=== PATIENT | male | born 1940 | race African-American/Black ===

== ENCOUNTER 2018-06-10 23:00 | Inpatient (IN) | payer MEDICARE, MEDICAID ==
[~2018-06-10] VITALS: Ht 175.3 cm; Wt 95.5 kg
[~2018-06-10 23:00] MED LIST: AMLO5TAB88 PO; ATOR40TA70 PO; BACL-141 PO; BRIM15DR8 EACHEYE; CLON0.2T PO; CLOP75TA33 PO; DICL2.5D8 EACHEYE; DORZ10DR8 EACHEYE; FERR-63 PO; FURO40TA5 PO; HYDR-4135 PO; INSNOV SUBCUT; INSU3INS6 SQ; LINA145C PO; LOSA100T14 PO; METO-539 PO; MINO10TA PO; OMEP20CA10 PO; POTA-79 PO; TAMS0.4C31 PO; TIOT18CA3 IH; [UNRECOGNIZED DRUG - OTHER]
[2018-06-11] MEDS ORDERED: ACETAMINOPHEN 325MG TABLET PO PRN (00:45)
[2018-06-11] MEDS ORDERED: ACETAMINOPHEN 650MG SUPP PR PRN (00:45)
[2018-06-11] MEDS ORDERED: ONDANSETRON HCL 4MG/2ML VIAL IV PRN (00:45)
[2018-06-11] MEDS ORDERED: IPRATROPIUM/ALBUTEROL 0.5-3(2.5)MG/3ML NEB HHN PRN (00:45)
[2018-06-11] MEDS ORDERED: DEXTROSE 50% WATER 50ML SYRINGE IV PRN (00:45)
[2018-06-11] MEDS ORDERED: DIPHENHYDRAMINE 50MG/ML VIAL IV PRN (00:45)
[2018-06-11 01:30] VITALS: BP 148/69
[2018-06-11] MEDS: CLONIDINE 0.1MG TABLET PO SCH ×3 (06:29→22:34)
[2018-06-11] MEDS: DILTIAZEM HCL 90MG TABLET PO SCH ×3 (06:29→22:28)
[2018-06-11] MEDS: INSULIN LISPRO 100 UNITS/ML SUBCUT SCH ×5 (06:30→17:00)
[2018-06-11] MEDS: BLOOD SUGAR DIAGNOSTIC STRIP TEST SCH ×4 (06:30→21:00)
[2018-06-11 07:12] LABS: HEMATOCRIT. 29.3 % (42.0-52.0); HEMOGLOBIN. 9.8 g/dL (14.0-18.0); MEAN CORPUSCULAR HEMOGLOBIN 28.3 pg (28.0-32.0); MEAN CORPUSCULAR VOLUME 85.1 fL (80.0-94.0); PLATELET 313 x1000/uL (130-400); RED BLOOD CELL COUNT 3.45 mill/uL (4.7-6.1); RED CELL DISTRIBUTION WIDTH 15.4 % (11.6-14.6)
[2018-06-11] MEDS: IPRATROPIUM/ALBUTEROL 0.5-3(2.5)MG/3ML NEB HHN SCH ×3 (07:12→19:40)
[2018-06-11 08:00] VITALS: BP 151/82
[2018-06-11 08:02] LABS: CHLORIDE 101 mEq/L (98-107)
[2018-06-11] MEDS: CLOTRIMAZOLE 10MG TROCHE MM SCH ×5 (09:00→22:36)
[2018-06-11] MEDS: DOCUSATE SODIUM 250MG CAPSULE PO SCH (09:15)
[2018-06-11] MEDS: CALCIUM ACETATE 667MG CAPSULE PO SCH ×3 (09:15→18:59)
[2018-06-11] MEDS: OMEPRAZOLE 20MG CAPSULE EXTENDED RELEASE PO SCH ×2 (09:16→21:00)
[2018-06-11] MEDS: BRIMONIDINE 0.2% OPHTH DROPS 5ML BOTHEYE SCH ×2 (09:16→18:59)
[2018-06-11] MEDS: DICLOFENAC SODIUM 0.1% OPHTH 2.5 ML BOTTLE BOTHEYE SCH ×2 (09:16→18:59)
[2018-06-11] MEDS: DORZOLAMIDE 2% OPHTH 10 ML BOTTLE BOTHEYE SCH ×2 (09:16→18:59)
[2018-06-11 10:31] LABS: PLATELET ESTIMATE NORMAL
[2018-06-11 20:00] VITALS: BP 155/78
[2018-06-11] MEDS: GUAIFENESIN 600MG ER TABLET PO SCH ×2 (21:00→22:43)
[2018-06-11] MEDS: ATORVASTATIN CALCIUM 40MG TABLET PO SCH (22:26)
[2018-06-12] MEDS: INSULIN LISPRO 100 UNITS/ML SUBCUT SCH ×5 (00:42→22:29)
[2018-06-12] MEDS: IPRATROPIUM/ALBUTEROL 0.5-3(2.5)MG/3ML NEB HHN SCH ×3 (01:30→21:31)
[2018-06-12 06:47] LABS: HEMATOCRIT. 26.5 % (42.0-52.0); MEAN CORPUSCULAR HEMOGLOBIN 28.6 pg (28.0-32.0); MEAN CORPUSCULAR VOLUME 84.3 fL (80.0-94.0); MEAN PLATELET VOLUME 8.1 fl (7.4-10.4); PLATELET 281 x1000/uL (130-400); RED BLOOD CELL COUNT 3.15 mill/uL (4.7-6.1); RED CELL DISTRIBUTION WIDTH 15.7 % (11.6-14.6)
[2018-06-12] MEDS: BLOOD SUGAR DIAGNOSTIC STRIP TEST SCH ×4 (06:49→21:00)
[2018-06-12] MEDS: DILTIAZEM HCL 90MG TABLET PO SCH ×3 (06:55→22:20)
[2018-06-12] MEDS: CLONIDINE 0.1MG TABLET PO SCH ×3 (06:56→22:20)
[2018-06-12 08:00] VITALS: BP 148/73
[2018-06-12] MEDS: CALCIUM ACETATE 667MG CAPSULE PO SCH ×3 (08:56→17:18)
[2018-06-12] MEDS: DOCUSATE SODIUM 250MG CAPSULE PO SCH (08:56)
[2018-06-12] MEDS: OMEPRAZOLE 20MG CAPSULE EXTENDED RELEASE PO SCH ×2 (08:56→22:20)
[2018-06-12] MEDS: DICLOFENAC SODIUM 0.1% OPHTH 2.5 ML BOTTLE BOTHEYE SCH ×2 (09:00→17:20)
[2018-06-12] MEDS: DORZOLAMIDE 2% OPHTH 10 ML BOTTLE BOTHEYE SCH ×2 (09:01→17:20)
[2018-06-12] MEDS: BRIMONIDINE 0.2% OPHTH DROPS 5ML BOTHEYE SCH ×2 (09:02→17:19)
[2018-06-12 11:52] LABS: NUCLEATED RED BLOOD CELLS 1 /100 WBC
[2018-06-12 11:53] LABS: PLATELET ESTIMATE NORMAL
[2018-06-12] MEDS: CLOTRIMAZOLE 10MG TROCHE MM SCH ×3 (12:17→22:19)
[2018-06-12 20:00] VITALS: BP 142/65
[2018-06-12] MEDS ORDERED: ENOXAPARIN 40MG/0.4ML SYR SUBCUT SCH (20:00)
[2018-06-12] MEDS: GUAIFENESIN 600MG ER TABLET PO SCH (22:20)
[2018-06-12] MEDS: ATORVASTATIN CALCIUM 40MG TABLET PO SCH (22:20)
[2018-06-12] MEDS: ENOXAPARIN 100MG/ML SYR SUBCUT SCH (22:21)
[2018-06-13] MEDS: IPRATROPIUM/ALBUTEROL 0.5-3(2.5)MG/3ML NEB HHN SCH ×4 (01:58→19:52)
[2018-06-13] MEDS: DILTIAZEM HCL 90MG TABLET PO SCH ×3 (05:27→21:02)
[2018-06-13] MEDS: CLONIDINE 0.1MG TABLET PO SCH ×3 (05:27→21:02)
[2018-06-13] MEDS: BLOOD SUGAR DIAGNOSTIC STRIP TEST SCH ×4 (06:30→21:10)
[2018-06-13 07:54] LABS: HEMATOCRIT. 23.6 % (42.0-52.0); HEMOGLOBIN. 7.9 g/dL (14.0-18.0); MEAN CORPUSCULAR HEMOGLOBIN 28.5 pg (28.0-32.0); MEAN CORPUSCULAR VOLUME 84.5 fL (80.0-94.0); MEAN PLATELET VOLUME 8.2 fl (7.4-10.4); PLATELET 266 x1000/uL (130-400); RED BLOOD CELL COUNT 2.79 mill/uL (4.7-6.1)
[2018-06-13 08:00] VITALS: BP 166/76
[2018-06-13 08:21] LABS: CHLORIDE 101 mEq/L (98-107)
[2018-06-13 08:33] LABS: PHOSPHORUS 5.7 mg/dL (2.5-4.9)
[2018-06-13 08:36] LABS: TOTAL IRON BINDING CAPACITY 236 ug/dL (250-450)
[2018-06-13] MEDS: INSULIN LISPRO 100 UNITS/ML SUBCUT SCH ×4 (09:00→21:09)
[2018-06-13] MEDS: OMEPRAZOLE 20MG CAPSULE EXTENDED RELEASE PO SCH (09:16)
[2018-06-13] MEDS: DOCUSATE SODIUM 250MG CAPSULE PO SCH ×2 (09:16→19:09)
[2018-06-13] MEDS: GUAIFENESIN 600MG ER TABLET PO SCH ×2 (09:16→21:02)
[2018-06-13] MEDS: CALCIUM ACETATE 667MG CAPSULE PO SCH ×3 (09:16→19:09)
[2018-06-13] MEDS: DORZOLAMIDE 2% OPHTH 10 ML BOTTLE BOTHEYE SCH ×2 (09:17→19:10)
[2018-06-13] MEDS: DICLOFENAC SODIUM 0.1% OPHTH 2.5 ML BOTTLE BOTHEYE SCH ×2 (09:17→19:11)
[2018-06-13] MEDS: BRIMONIDINE 0.2% OPHTH DROPS 5ML BOTHEYE SCH ×2 (09:17→19:11)
[2018-06-13 09:40] LABS: FOLIC ACID (FOLATE) SERUM 8.3 ng/mL (>5.38)
[2018-06-13] MEDS: CLOTRIMAZOLE 10MG TROCHE MM SCH ×4 (10:48→21:01)
[2018-06-13 12:48] LABS: PLATELET ESTIMATE NORMAL
[2018-06-13] MEDS ORDERED: HEPARIN SODIUM 1,000 UNIT/1ML VIAL IV NR (15:15)
[2018-06-13 15:16] LABS: HEMATOCRIT 24.2 % (42.0-52.0); HEMOGLOBIN 8.1 g/dL (14.0-18.0); MEAN CORPUSCULAR HEMOGLOBIN 28.4 pg (28.0-32.0); MEAN CORPUSCULAR VOLUME 84.7 fL (80.0-94.0); PLATELET 281 x1000/uL (130-400); RED BLOOD CELL COUNT 2.85 mill/uL (4.7-6.1); RED CELL DISTRIBUTION WIDTH 15.6 % (11.6-14.6)
[2018-06-13 20:00] VITALS: BP 148/68
[2018-06-13] MEDS: ATORVASTATIN CALCIUM 40MG TABLET PO SCH (21:02)
[2018-06-13] MEDS: ENOXAPARIN 100MG/ML SYR SUBCUT SCH (21:02)
[2018-06-13] MEDS ORDERED: IOHEXOL-350 100 ML BOTTLE ONE (22:40)
[2018-06-14] MEDS: IPRATROPIUM/ALBUTEROL 0.5-3(2.5)MG/3ML NEB HHN SCH ×4 (01:11→21:04)
[2018-06-14 04:55] VITALS: BP 163/76
[2018-06-14] MEDS: DILTIAZEM HCL 90MG TABLET PO SCH ×3 (05:26→21:11)
[2018-06-14] MEDS: LACTULOSE 20G/30ML UDC PO PRN ×2 (05:26→22:50)
[2018-06-14] MEDS: CLONIDINE 0.1MG TABLET PO SCH ×3 (05:27→21:11)
[2018-06-14] MEDS: BLOOD SUGAR DIAGNOSTIC STRIP TEST SCH ×4 (06:13→21:13)
[2018-06-14] MEDS: INSULIN LISPRO 100 UNITS/ML SUBCUT SCH ×4 (06:25→21:00)
[2018-06-14 08:00] VITALS: BP 145/64
[2018-06-14 09:29] LABS: HEMATOCRIT. 26.2 % (42.0-52.0); HEMOGLOBIN. 8.8 g/dL (14.0-18.0); MEAN CORPUSCULAR HEMOGLOBIN 28.3 pg (28.0-32.0); MEAN CORPUSCULAR VOLUME 84.3 fL (80.0-94.0); MEAN PLATELET VOLUME 8.4 fl (7.4-10.4); PLATELET 353 x1000/uL (130-400); RED CELL DISTRIBUTION WIDTH 15.4 % (11.6-14.6)
[2018-06-14] MEDS: CLOTRIMAZOLE 10MG TROCHE MM SCH ×4 (09:39→20:38)
[2018-06-14] MEDS: FAMOTIDINE 20MG TABLET PO SCH (09:39)
[2018-06-14] MEDS: CALCIUM ACETATE 667MG CAPSULE PO SCH ×3 (09:39→18:12)
[2018-06-14] MEDS: BRIMONIDINE 0.2% OPHTH DROPS 5ML BOTHEYE SCH ×2 (09:40→18:15)
[2018-06-14] MEDS: DORZOLAMIDE 2% OPHTH 10 ML BOTTLE BOTHEYE SCH ×2 (09:40→18:15)
[2018-06-14] MEDS: DICLOFENAC SODIUM 0.1% OPHTH 2.5 ML BOTTLE BOTHEYE SCH ×2 (09:40→18:15)
[2018-06-14 10:22] LABS: PHOSPHORUS 4.6 mg/dL (2.5-4.9)
[2018-06-14] MEDS: GUAIFENESIN 600MG ER TABLET PO SCH ×2 (10:30→20:38)
[2018-06-14 12:00] VITALS: BP 158/69
[2018-06-14 14:30] LABS: PLATELET ESTIMATE NORMAL
[2018-06-14 16:00] VITALS: BP 158/69
[2018-06-14 20:00] VITALS: BP 146/72
[2018-06-14] MEDS: ENOXAPARIN 100MG/ML SYR SUBCUT SCH (20:38)
[2018-06-14] MEDS: MIRTAZAPINE 30MG TABLET PO SCH (20:39)
[2018-06-14] MEDS: ATORVASTATIN CALCIUM 40MG TABLET PO SCH (20:39)
[2018-06-15] MEDS: IPRATROPIUM/ALBUTEROL 0.5-3(2.5)MG/3ML NEB HHN SCH ×3 (01:51→12:38)
[2018-06-15] MEDS: DILTIAZEM HCL 90MG TABLET PO SCH ×3 (05:43→21:16)
[2018-06-15] MEDS: CLONIDINE 0.1MG TABLET PO SCH ×3 (05:43→23:40)
[2018-06-15] MEDS: BLOOD SUGAR DIAGNOSTIC STRIP TEST SCH ×4 (06:31→20:45)
[2018-06-15] MEDS: INSULIN LISPRO 100 UNITS/ML SUBCUT SCH ×4 (06:43→21:09)
[2018-06-15 07:01] LABS: BASOPHILS % 1.3 % (0.0-2.0); EOSINOPHILS % 1.3 % (0.0-5.0); HEMOGLOBIN. 8.1 g/dL (14.0-18.0); LYMPHOCYTES % 8.5 % (20.0-50.0); MEAN CORPUSCULAR VOLUME 85.6 fL (80.0-94.0); MEAN PLATELET VOLUME 8.4 fl (7.4-10.4); MONOCYTES % 10.7 % (2.0-8.0); NEUTROPHILS % 78.2 % (40.0-76.0); PLATELET 315 x1000/uL (130-400); RED BLOOD CELL COUNT 2.81 mill/uL (4.7-6.1); RED CELL DISTRIBUTION WIDTH 15.2 % (11.6-14.6)
[2018-06-15 07:34] LABS: CHLORIDE 101 mEq/L (98-107)
[2018-06-15 07:44] LABS: PHOSPHORUS 4.8 mg/dL (2.5-4.9)
[2018-06-15 08:00] VITALS: BP 146/68
[2018-06-15] MEDS: BRIMONIDINE 0.2% OPHTH DROPS 5ML BOTHEYE SCH ×2 (09:00→17:00)
[2018-06-15] MEDS: DICLOFENAC SODIUM 0.1% OPHTH 2.5 ML BOTTLE BOTHEYE SCH ×2 (09:00→17:00)
[2018-06-15] MEDS: DORZOLAMIDE 2% OPHTH 10 ML BOTTLE BOTHEYE SCH ×2 (09:00→17:00)
[2018-06-15] MEDS: DOCUSATE SODIUM 250MG CAPSULE PO SCH (09:30)
[2018-06-15] MEDS: CALCIUM ACETATE 667MG CAPSULE PO SCH ×3 (09:30→20:20)
[2018-06-15] MEDS: FAMOTIDINE 20MG TABLET PO SCH (09:30)
[2018-06-15] MEDS: GUAIFENESIN 600MG ER TABLET PO SCH ×2 (10:34→20:44)
[2018-06-15 20:00] VITALS: BP 169/88
[2018-06-15] MEDS: ATORVASTATIN CALCIUM 40MG TABLET PO SCH (20:43)
[2018-06-15] MEDS: MIRTAZAPINE 30MG TABLET PO SCH (20:44)
[2018-06-15] MEDS: EPOETIN ALFA 10000UNITS/ML VIAL SUBCUT SCH (21:08)
[2018-06-15] MEDS: ENOXAPARIN 100MG/ML SYR SUBCUT SCH (21:08)
[2018-06-15] MEDS: LACTULOSE 20G/30ML UDC PO PRN (21:22)
[2018-06-16] MEDS: CLONIDINE 0.1MG TABLET PO SCH ×3 (06:00→22:00)
[2018-06-16] MEDS: BLOOD SUGAR DIAGNOSTIC STRIP TEST SCH ×4 (06:43→21:10)
[2018-06-16] MEDS: DILTIAZEM HCL 90MG TABLET PO SCH ×3 (06:56→21:10)
[2018-06-16] MEDS: INSULIN LISPRO 100 UNITS/ML SUBCUT SCH ×4 (06:57→21:38)
[2018-06-16 08:00] VITALS: BP 161/75
[2018-06-16] MEDS: IPRATROPIUM/ALBUTEROL 0.5-3(2.5)MG/3ML NEB HHN SCH ×3 (08:55→21:27)
[2018-06-16] MEDS: DICLOFENAC SODIUM 0.1% OPHTH 2.5 ML BOTTLE BOTHEYE SCH ×2 (09:00→17:00)
[2018-06-16] MEDS: DORZOLAMIDE 2% OPHTH 10 ML BOTTLE BOTHEYE SCH ×2 (09:00→17:00)
[2018-06-16] MEDS: BRIMONIDINE 0.2% OPHTH DROPS 5ML BOTHEYE SCH ×2 (09:00→17:00)
[2018-06-16] MEDS: GUAIFENESIN 600MG ER TABLET PO SCH ×2 (10:44→21:10)
[2018-06-16] MEDS: FAMOTIDINE 20MG TABLET PO SCH (10:45)
[2018-06-16] MEDS: DOCUSATE SODIUM 250MG CAPSULE PO SCH (10:45)
[2018-06-16] MEDS: CALCIUM ACETATE 667MG CAPSULE PO SCH ×3 (10:49→18:03)
[2018-06-16 13:12] LABS: HEMATOCRIT. 30.5 % (42.0-52.0); HEMOGLOBIN. 9.6 g/dL (14.0-18.0); MEAN CORPUSCULAR HEMOGLOBIN 28.5 pg (28.0-32.0); MEAN CORPUSCULAR VOLUME 90.5 fL (80.0-94.0); MEAN PLATELET VOLUME 7.9 fl (7.4-10.4); PLATELET 268 x1000/uL (130-400); RED BLOOD CELL COUNT 3.37 mill/uL (4.7-6.1); RED CELL DISTRIBUTION WIDTH 15.6 % (11.6-14.6)
[2018-06-16 13:42] LABS: CHLORIDE 101 mEq/L (98-107)
[2018-06-16 14:12] LABS: PLATELET ESTIMATE NORMAL
[2018-06-16 20:00] VITALS: BP 133/62
[2018-06-16] MEDS: ENOXAPARIN 100MG/ML SYR SUBCUT SCH (21:09)
[2018-06-16] MEDS: ATORVASTATIN CALCIUM 40MG TABLET PO SCH (21:10)
[2018-06-16] MEDS: MIRTAZAPINE 30MG TABLET PO SCH (21:10)
[2018-06-17] MEDS: IPRATROPIUM/ALBUTEROL 0.5-3(2.5)MG/3ML NEB HHN SCH ×4 (02:00→20:58)
[2018-06-17] MEDS: CLONIDINE 0.1MG TABLET PO SCH ×2 (06:14→06:16)
[2018-06-17] MEDS: BLOOD SUGAR DIAGNOSTIC STRIP TEST SCH ×5 (06:14→21:18)
[2018-06-17] MEDS: DILTIAZEM HCL 90MG TABLET PO SCH ×3 (06:14→21:43)
[2018-06-17] MEDS: INSULIN LISPRO 100 UNITS/ML SUBCUT SCH ×4 (06:14→21:59)
[2018-06-17 07:12] LABS: HEMATOCRIT. 25.2 % (42.0-52.0); HEMOGLOBIN. 8.5 g/dL (14.0-18.0); MEAN CORPUSCULAR HEMOGLOBIN 28.6 pg (28.0-32.0); MEAN CORPUSCULAR VOLUME 84.4 fL (80.0-94.0); MEAN PLATELET VOLUME 7.7 fl (7.4-10.4); PLATELET 367 x1000/uL (130-400); RED BLOOD CELL COUNT 2.98 mill/uL (4.7-6.1); RED CELL DISTRIBUTION WIDTH 15.4 % (11.6-14.6)
[2018-06-17 07:30] LABS: PHOSPHORUS 4.3 mg/dL (2.5-4.9)
[2018-06-17 08:00] VITALS: BP 178/88
[2018-06-17 08:30] VITALS: BP 156/70
[2018-06-17] MEDS: GUAIFENESIN 600MG ER TABLET PO SCH ×2 (08:58→21:43)
[2018-06-17] MEDS: DOCUSATE SODIUM 250MG CAPSULE PO SCH (08:59)
[2018-06-17] MEDS: CALCIUM ACETATE 667MG CAPSULE PO SCH ×3 (08:59→17:26)
[2018-06-17] MEDS: DORZOLAMIDE 2% OPHTH 10 ML BOTTLE BOTHEYE SCH ×2 (08:59→17:26)
[2018-06-17] MEDS: FAMOTIDINE 20MG TABLET PO SCH (08:59)
[2018-06-17] MEDS: DICLOFENAC SODIUM 0.1% OPHTH 2.5 ML BOTTLE BOTHEYE SCH ×2 (08:59→17:26)
[2018-06-17] MEDS: BRIMONIDINE 0.2% OPHTH DROPS 5ML BOTHEYE SCH ×2 (09:00→17:26)
[2018-06-17] MEDS: LINAGLIPTIN 5MG TABLET PO SCH (12:31)
[2018-06-17 14:00] LABS: PLATELET ESTIMATE NORMAL
[2018-06-17] MEDS: CLONIDINE 0.2MG TABLET PO SCH ×2 (14:23→21:43)
[2018-06-17 20:00] VITALS: BP 133/71
[2018-06-17] MEDS: ENOXAPARIN 100MG/ML SYR SUBCUT SCH (21:42)
[2018-06-17] MEDS: ATORVASTATIN CALCIUM 40MG TABLET PO SCH (21:43)
[2018-06-17] MEDS: MIRTAZAPINE 30MG TABLET PO SCH (21:43)
[2018-06-17] MEDS: EPOETIN ALFA 10000UNITS/ML VIAL SUBCUT SCH (21:44)
[2018-06-18] MEDS: IPRATROPIUM/ALBUTEROL 0.5-3(2.5)MG/3ML NEB HHN SCH ×4 (01:17→20:32)
[2018-06-18] MEDS: DILTIAZEM HCL 90MG TABLET PO SCH ×3 (06:03→21:19)
[2018-06-18] MEDS: CLONIDINE 0.2MG TABLET PO SCH ×3 (06:03→21:19)
[2018-06-18] MEDS: BLOOD SUGAR DIAGNOSTIC STRIP TEST SCH ×4 (06:05→21:19)
[2018-06-18] MEDS: INSULIN LISPRO 100 UNITS/ML SUBCUT SCH ×4 (06:36→22:24)
[2018-06-18 08:00] VITALS: BP 127/58
[2018-06-18] MEDS: DORZOLAMIDE 2% OPHTH 10 ML BOTTLE BOTHEYE SCH ×2 (09:37→17:59)
[2018-06-18] MEDS: CALCIUM ACETATE 667MG CAPSULE PO SCH ×3 (09:37→17:58)
[2018-06-18] MEDS: DOCUSATE SODIUM 250MG CAPSULE PO SCH (09:37)
[2018-06-18] MEDS: GUAIFENESIN 600MG ER TABLET PO SCH ×2 (09:37→21:19)
[2018-06-18] MEDS: FAMOTIDINE 20MG TABLET PO SCH (09:37)
[2018-06-18] MEDS: BRIMONIDINE 0.2% OPHTH DROPS 5ML BOTHEYE SCH ×2 (09:37→17:59)
[2018-06-18] MEDS: DICLOFENAC SODIUM 0.1% OPHTH 2.5 ML BOTTLE BOTHEYE SCH ×2 (09:37→17:59)
[2018-06-18] MEDS: LINAGLIPTIN 5MG TABLET PO SCH (09:38)
[2018-06-18 10:26] LABS: EOSINOPHILS % 1.8 % (0.0-5.0); HEMATOCRIT. 24.8 % (42.0-52.0); HEMOGLOBIN. 8.3 g/dL (14.0-18.0); LYMPHOCYTES % 9.9 % (20.0-50.0); MEAN CORPUSCULAR HEMOGLOBIN 28.6 pg (28.0-32.0); MEAN CORPUSCULAR VOLUME 85.7 fL (80.0-94.0); MEAN PLATELET VOLUME 7.9 fl (7.4-10.4); NEUTROPHILS % 78.3 % (40.0-76.0); PLATELET 362 x1000/uL (130-400); RED BLOOD CELL COUNT 2.89 mill/uL (4.7-6.1); RED CELL DISTRIBUTION WIDTH 15.5 % (11.6-14.6)
[2018-06-18 11:14] LABS: CHLORIDE 105 mEq/L (98-107)
[2018-06-18 11:20] LABS: PHOSPHORUS 3.7 mg/dL (2.5-4.9)
[2018-06-18] MEDS: INSULIN GLARGINE UD 100 UNITS/ML SYR SUBCUT SCH (13:40)
[2018-06-18 19:06] LABS: 25-HYDROXY VITAMIN D3 10 ng/mL (.)
[2018-06-18 20:00] VITALS: BP 133/71
[2018-06-18] MEDS: ATORVASTATIN CALCIUM 40MG TABLET PO SCH (21:19)
[2018-06-18] MEDS: ENOXAPARIN 100MG/ML SYR SUBCUT SCH (21:19)
[2018-06-18] MEDS: MIRTAZAPINE 30MG TABLET PO SCH (21:19)
[2018-06-19] MEDS: IPRATROPIUM/ALBUTEROL 0.5-3(2.5)MG/3ML NEB HHN SCH ×4 (02:31→19:53)
[2018-06-19] MEDS: CLONIDINE 0.2MG TABLET PO SCH ×3 (05:53→22:00)
[2018-06-19] MEDS: BLOOD SUGAR DIAGNOSTIC STRIP TEST SCH ×4 (05:53→21:00)
[2018-06-19] MEDS: DILTIAZEM HCL 90MG TABLET PO SCH ×3 (05:53→22:16)
[2018-06-19] MEDS: INSULIN LISPRO 100 UNITS/ML SUBCUT SCH ×4 (06:17→22:26)
[2018-06-19 08:00] VITALS: BP 140/70
[2018-06-19] MEDS: DICLOFENAC SODIUM 0.1% OPHTH 2.5 ML BOTTLE BOTHEYE SCH ×2 (09:00→17:00)
[2018-06-19] MEDS: BRIMONIDINE 0.2% OPHTH DROPS 5ML BOTHEYE SCH ×2 (09:00→17:00)
[2018-06-19] MEDS: DORZOLAMIDE 2% OPHTH 10 ML BOTTLE BOTHEYE SCH ×2 (09:00→17:00)
[2018-06-19] MEDS: INSULIN GLARGINE UD 100 UNITS/ML SYR SUBCUT SCH (10:00)
[2018-06-19] MEDS: DOCUSATE SODIUM 250MG CAPSULE PO SCH (10:10)
[2018-06-19] MEDS: LINAGLIPTIN 5MG TABLET PO SCH (10:10)
[2018-06-19] MEDS: FAMOTIDINE 20MG TABLET PO SCH (10:10)
[2018-06-19] MEDS: CALCIUM ACETATE 667MG CAPSULE PO SCH ×3 (10:10→18:37)
[2018-06-19] MEDS: GUAIFENESIN 600MG ER TABLET PO SCH ×2 (10:10→22:15)
[2018-06-19 14:09] LABS: HEPATITIS B SURFACE AB 4.3 mIU/mL
[2018-06-19 14:20] LABS: HEPATITIS B SURFACE ANTIGEN NEGATIVE
[2018-06-19] MEDS ORDERED: ERGOCALCIFEROL 50000UNITS CAPSULE PO SCH (14:45)
[2018-06-19 20:00] VITALS: BP 126/63
[2018-06-19] MEDS: MIRTAZAPINE 30MG TABLET PO SCH (22:15)
[2018-06-19] MEDS: ATORVASTATIN CALCIUM 40MG TABLET PO SCH (22:15)
[2018-06-19] MEDS: ENOXAPARIN 100MG/ML SYR SUBCUT SCH (22:15)
[2018-06-20] MEDS: IPRATROPIUM/ALBUTEROL 0.5-3(2.5)MG/3ML NEB HHN SCH ×3 (01:37→15:33)
[2018-06-20] MEDS: DILTIAZEM HCL 90MG TABLET PO SCH (05:56)
[2018-06-20] MEDS: CLONIDINE 0.2MG TABLET PO SCH (05:56)
[2018-06-20] MEDS: BLOOD SUGAR DIAGNOSTIC STRIP TEST SCH ×2 (05:57→11:15)
[2018-06-20] MEDS: INSULIN LISPRO 100 UNITS/ML SUBCUT SCH ×2 (05:59→13:12)
[2018-06-20 07:31] LABS: BASOPHILS % 1.3 % (0.0-2.0); HEMATOCRIT. 26.7 % (42.0-52.0); HEMOGLOBIN. 8.9 g/dL (14.0-18.0); LYMPHOCYTES % 12.6 % (20.0-50.0); MEAN CORPUSCULAR HEMOGLOBIN 28.8 pg (28.0-32.0); MONOCYTES % 8.8 % (2.0-8.0); NEUTROPHILS % 75.3 % (40.0-76.0); PLATELET 366 x1000/uL (130-400); RED CELL DISTRIBUTION WIDTH 15.9 % (11.6-14.6)
[2018-06-20 07:43] LABS: PHOSPHORUS 3.8 mg/dL (2.5-4.9)
[2018-06-20 07:56] VITALS: BP 153/72
[2018-06-20] MEDS: LINAGLIPTIN 5MG TABLET PO SCH (09:23)
[2018-06-20] MEDS: FAMOTIDINE 20MG TABLET PO SCH (09:23)
[2018-06-20] MEDS: CALCIUM ACETATE 667MG CAPSULE PO SCH ×2 (09:23→13:07)
[2018-06-20] MEDS: GUAIFENESIN 600MG ER TABLET PO SCH (09:23)
[2018-06-20] MEDS: DOCUSATE SODIUM 250MG CAPSULE PO SCH (09:24)
[2018-06-20] MEDS: INSULIN GLARGINE UD 100 UNITS/ML SYR SUBCUT SCH (09:32)
[2018-06-20] MEDS: BRIMONIDINE 0.2% OPHTH DROPS 5ML BOTHEYE SCH (09:34)
[2018-06-20] MEDS: DORZOLAMIDE 2% OPHTH 10 ML BOTTLE BOTHEYE SCH (09:34)
[2018-06-20] MEDS: DICLOFENAC SODIUM 0.1% OPHTH 2.5 ML BOTTLE BOTHEYE SCH (09:34)
[2018-06-20] MEDS ORDERED: DILTIAZEM HCL 5MG/ML 5ML VIAL IV ONE (15:45)
[2018-06-20 15:53] LABS: BG CARBOXYHEMOGLOBIN 0.1 % (0.5-1.5); BG FRACTION INSPIRED OXYGEN 50; BG HCO3 ACT 23.3 mmol/L (22.0-26.0); BG METHEMOGLOBIN 0.4 % (0.0-1.5); BG OXYHEMOGLOBIN 98.5 % (94.0-97.0); BG PCO2 36.8 mmHg (35.0-45.0); BG PH 7.419 (7.350-7.450); BG PO2 217.8 mmHg (75.0-100.0); BG SAMPLE SITE LEFT RADIAL; BG TOTAL HEMOGLOBIN 9.6 g/dL (12.0-18.0)
== END 2018-06-20 18:00 | disposition short-term general hospital (02) | DRG 70 ==
PROVIDERS: ADMIT Physical Medicine & Rehabilitation Spinal Cord Injury Medicine; ATTEND Internal Medicine
PROC: 5A1D70Z Performance of Urinary Filtration, Intermittent, Less than 6 Hours Per Day (ICD-10-PCS; principal; 2018-06-11)
PROC: 5A1D70Z Performance of Urinary Filtration, Intermittent, Less than 6 Hours Per Day (ICD-10-PCS; 2018-06-13)
PROC: 5A1D70Z Performance of Urinary Filtration, Intermittent, Less than 6 Hours Per Day (ICD-10-PCS; 2018-06-15)
PROC: 5A1D70Z Performance of Urinary Filtration, Intermittent, Less than 6 Hours Per Day (ICD-10-PCS; 2018-06-17)
PROC: 5A1D70Z Performance of Urinary Filtration, Intermittent, Less than 6 Hours Per Day (ICD-10-PCS; 2018-06-20)
DX: G93.40 Encephalopathy, unspecified (principal); A41.9 Sepsis, unspecified organism; L89.313 Pressure ulcer of right buttock, stage 3; E43 Unspecified severe protein-calorie malnutrition; I46.9 Cardiac arrest, cause unspecified; N18.6 End stage renal disease; R65.21 Severe sepsis with septic shock; J96.00 Acute respiratory failure, unspecified whether with hypoxia or hypercapnia; N17.9 Acute kidney failure, unspecified; I12.0 Hypertensive chronic kidney disease with stage 5 chronic kidney disease or end stage renal disease; K81.0 Acute cholecystitis; J44.1 Chronic obstructive pulmonary disease with (acute) exacerbation; I82.412 Acute embolism and thrombosis of left femoral vein; D64.9 Anemia, unspecified; E11.22 Type 2 diabetes mellitus with diabetic chronic kidney disease; I25.10 Atherosclerotic heart disease of native coronary artery without angina pectoris; R53.81 Other malaise; R26.9 Unspecified abnormalities of gait and mobility; R13.10 Dysphagia, unspecified; E87.70 Fluid overload, unspecified; E78.5 Hyperlipidemia, unspecified; E78.1 Pure hyperglyceridemia; R74.0 Nonspecific elevation of levels of transaminase and lactic acid dehydrogenase [LDH]; E11.649 Type 2 diabetes mellitus with hypoglycemia without coma; E55.9 Vitamin D deficiency, unspecified; F09 Unspecified mental disorder due to known physiological condition; F32.9 Major depressive disorder, single episode, unspecified; J44.9 Chronic obstructive pulmonary disease, unspecified; E11.65 Type 2 diabetes mellitus with hyperglycemia; Z95.5 Presence of coronary angioplasty implant and graft; Z86.711 Personal history of pulmonary embolism; Z88.8 Allergy status to other drugs, medicaments and biological substances; Z79.899 Other long term (current) drug therapy; Z79.51 Long term (current) use of inhaled steroids; Z82.49 Family history of ischemic heart disease and other diseases of the circulatory system; Z90.49 Acquired absence of other specified parts of digestive tract; Z99.2 Dependence on renal dialysis; Z79.4 Long term (current) use of insulin; Z68.31 Body mass index [BMI] 31.0-31.9, adult
CPT/HCPCS: 36415; 36600; 71045; 71275; 80048; 80053; 80076; 82306; 82375; 82607; 82728; 82746; 82805; 82962; 83540; 83550; 83735; 84100; 84134; 84443; 84630; 85025; 85027; 86706; 86803; 87340; 92523; 92610; 93005; 93970; 94640; 97110; 97116; 97162; 97166; 97530; 97535; C1893; G0515; J0885; J1644; J1650; J1815; J2405; J7030; J7620; Q9967